=== PATIENT | female | born 1945 | race African-American/Black ===

== ENCOUNTER 2017-07-04 13:53 | Inpatient (IN) | payer MEDICARE, MEDICAID, OTHER ==
[2017-07-04] MEDS ORDERED: fentaNYL PF VIAL 100 MCG/2 ML VIAL IV (14:45)
[2017-07-04 14:52] LABS: ADD MAN DIFF? NO
[2017-07-04 15:00] LABS: BASO # 0.1 x10^3/uL (0.0-0.2); BASO % 1 % (0-3); EOS # 0.5 x10^3/uL (0.0-0.7); EOS % 5 % (0-3); HEMATOCRIT 35.4 % (36.0-47.0); HEMOGLOBIN 11.8 g/dL (12.0-15.5); LYMPH # 1.8 x10^3/uL (1.0-4.8); LYMPH % 16 % (24-48); MEAN CORPUSCULAR HEMOGLOBIN 31 pg (25-35); MEAN CORPUSCULAR HGB CONC 33 g/dL (31-37); MEAN CORPUSCULAR VOLUME 93 fL (79-100); MONO # 0.7 x10^3/uL (0.0-1.1); MONO % 7 % (0-9); NEUT # 7.8 x10^3uL (1.8-7.7); NEUT % 71 % (31-73); PLATELET COUNT 185 x10^3/uL (140-400); RED BLOOD COUNT 3.79 x10^6/uL (3.50-5.40); RED CELL DISTRIBUTION WIDTH 14.9 % (11.5-14.5); WHITE BLOOD COUNT 10.9 x10^3/uL (4.0-11.0)
[2017-07-04 15:09] LABS: INR 1.1 (0.8-1.1); PROTHROMBIN TIME PATIENT 13.2 SEC (11.7-14.0)
[2017-07-04 15:10] LABS: ANION GAP 14 (6-14); BLOOD UREA NITROGEN 64 mg/dL (7-20); CALCIUM 8.7 mg/dL (8.5-10.1); CARBON DIOXIDE 21 mmol/L (21-32); CHLORIDE 105 mmol/L (98-107); CREATININE 7.1 mg/dL (0.6-1.0); GFR 6.9; GLUCOSE 197 mg/dL (70-99); POTASSIUM 5.2 mmol/L (3.5-5.1); SODIUM 140 mmol/L (136-145)
[2017-07-04 15:15] LABS: ALBUMIN 3.4 g/dL (3.4-5.0); ALK PHOS 79 U/L (46-116); ALT (SGPT) 20 U/L (14-59); AST (SGOT) 26 U/L (15-37); DIRECT BILIRUBIN 0.1 mg/dL (0.0-0.2); LIPASE 299 U/L (73-393); MAGNESIUM 2.4 mg/dL (1.8-2.4); TOTAL BILIRUBIN 0.2 mg/dL (0.2-1.0); TOTAL PROTEIN 7.5 g/dL (6.4-8.2)
[2017-07-04 15:18] LABS: TROPONINI < 0.017 ng/mL (0.000-0.055)
[2017-07-04 15:23] LABS: CKMB MASS 0.9 ng/mL (0.0-3.6); CREATINE KINASE 87 U/L (26-192)
[2017-07-04 15:23] LABS: NT-PRO BNP 4967 pg/mL (0-124)
[2017-07-04 16:02] LABS: LACTIC ACID 1.2 mmol/L (0.4-2.0)
[2017-07-04 16:46] LABS: BILIRUBIN,URINE NEGATIVE (NEG); CLARITY,URINE CLEAR; COLOR,URINE YELLOW; GLUCOSE,URINE 100 mg/dL (NEG); NITRITE,URINE NEGATIVE (NEG); PROTEIN,URINE >=300 mg/dL (NEG-TRACE); UROBILINOGEN,URINE 0.2 mg/dL (0.2 mg/dL)
[2017-07-04 16:57] LABS: AMORPHOUS SEDIMENT,UR PRESENT /HPF; BACTERIA,URINE 0 /HPF (0-FEW); BARBITURATES NEG (NEG); BENZODIAZEPINES NEG (NEG); CANNABINOIDS NEG (NEG); COCAINE NEG (NEG); METHADONE NEG (NEG); OPIATES NEG (NEG); PHENCYCLIDINE NEG (NEG); RBC,URINE 0 /HPF (0-2); SQUAMOUS EPITHELIAL CELL,UR FEW /LPF
[2017-07-04 17:05] LABS: AMPHETAMINE/METHAMPHETAMINE NEG (NEG); ETHANOL, URINE NEG (NEG)
[2017-07-04] MEDS: IOHEXOL 300 MG/ML 100ML VIAL. IV (17:45)
[2017-07-04] MEDS ORDERED: ONDANSETRON PF 4 MG/2 ML VIAL. IV (17:45)
[2017-07-04] MEDS ORDERED: CONTRAST GIVEN MC (18:00)
[2017-07-04 20:19] LABS: POC GLUCOSE 78 mg/dL (70-99)
[2017-07-04] MEDS: MIRTAZAPINE 15 MG TABLET PO (20:57)
[2017-07-05 04:39] LABS: ADD MAN DIFF? NO
[2017-07-05 04:47] LABS: BASO # 0.1 x10^3/uL (0.0-0.2); BASO % 1 % (0-3); EOS # 0.7 x10^3/uL (0.0-0.7); EOS % 9 % (0-3); HEMATOCRIT 33.3 % (36.0-47.0); HEMOGLOBIN 10.8 g/dL (12.0-15.5); LYMPH # 1.9 x10^3/uL (1.0-4.8); LYMPH % 23 % (24-48); MEAN CORPUSCULAR HEMOGLOBIN 31 pg (25-35); MEAN CORPUSCULAR HGB CONC 33 g/dL (31-37); MEAN CORPUSCULAR VOLUME 94 fL (79-100); MONO # 0.7 x10^3/uL (0.0-1.1); MONO % 9 % (0-9); NEUT # 4.6 x10^3uL (1.8-7.7); NEUT % 58 % (31-73); PLATELET COUNT 158 x10^3/uL (140-400); RED BLOOD COUNT 3.55 x10^6/uL (3.50-5.40); RED CELL DISTRIBUTION WIDTH 14.8 % (11.5-14.5)
[2017-07-05 05:06] LABS: ANION GAP 11 (6-14); BLOOD UREA NITROGEN 67 mg/dL (7-20); CALCIUM 8.3 mg/dL (8.5-10.1); CARBON DIOXIDE 20 mmol/L (21-32); CHLORIDE 108 mmol/L (98-107); CREATININE 7.6 mg/dL (0.6-1.0); GFR 6.3; GLUCOSE 88 mg/dL (70-99); POTASSIUM 5.3 mmol/L (3.5-5.1); SODIUM 139 mmol/L (136-145)
[2017-07-05] MEDS: amLODIPine BESYLATE 5 MG TABLET PO ×2 (09:00→18:37)
[2017-07-05] MEDS: METOPROLOL SUCC 24HR ER 25 MG TAB.ER.24H. PO (09:00)
[2017-07-05] MEDS: ATORVASTATIN CALCIUM 10 MG TABLET. PO (09:00)
[2017-07-05] MEDS: LISINOPRIL 20 MG TABLET PO ×2 (09:00)
[2017-07-05 09:01] LABS: POC GLUCOSE 93 mg/dL (70-99)
[2017-07-05] MEDS ORDERED: ACETAMINOPHEN 500 MG TABLET PO (10:00)
[2017-07-05] MEDS ORDERED: ONDANSETRON PF 4 MG/2 ML VIAL. IV (10:00)
[2017-07-05] MEDS: PANTOPRAZOLE 40 MG TABLET.DR. PO (11:23)
[2017-07-05] MEDS: ASPIRIN ENTERIC COATED 81 MG TABLET.DR. PO (11:23)
[2017-07-05] MEDS: LINAGLIPTIN 5 MG TABLET PO (11:24)
[2017-07-05] MEDS ORDERED: IV NORMAL SALINE 1000ML BAG 1,000 ML IV ×2 (14:57)
[2017-07-05] MEDS ORDERED: diphenhydrAMINE 50 MG/ML VIAL IV ×2 (15:00)
[2017-07-05] MEDS ORDERED: DIALYSIS PATIENT. MC (15:00)
[2017-07-05 17:01] LABS: POC GLUCOSE 166 mg/dL (70-99)
[2017-07-05] MEDS: DARBEPOETIN ALFA 60 MCG/0.3 ML DISP.SYRIN. SQ (18:24)
== END 2017-07-05 19:32 | disposition home or self-care (01) | DRG 682 ==
LOC: ER 13:53 → 5 NORTH 17:31
PROC: 5A1D70Z Performance of Urinary Filtration, Intermittent, Less than 6 Hours Per Day (ICD-10-PCS; principal; 2017-07-05)
DX: I12.0 Hypertensive chronic kidney disease with stage 5 chronic kidney disease or end stage renal disease (principal); N18.6 End stage renal disease; E11.22 Type 2 diabetes mellitus with diabetic chronic kidney disease; E87.5 Hyperkalemia; M48.56XA Collapsed vertebra, not elsewhere classified, lumbar region, initial encounter for fracture; R47.01 Aphasia; K52.9 Noninfective gastroenteritis and colitis, unspecified; D63.1 Anemia in chronic kidney disease; E78.5 Hyperlipidemia, unspecified; F03.90 Unspecified dementia, unspecified severity, without behavioral disturbance, psychotic disturbance, mood disturbance, and anxiety; I25.10 Atherosclerotic heart disease of native coronary artery without angina pectoris; K76.89 Other specified diseases of liver; N20.0 Calculus of kidney; Z79.82 Long term (current) use of aspirin; Z79.84 Long term (current) use of oral hypoglycemic drugs; Z79.899 Other long term (current) drug therapy; Z82.49 Family history of ischemic heart disease and other diseases of the circulatory system; Z86.73 Personal history of transient ischemic attack (TIA), and cerebral infarction without residual deficits; Z91.15 Patient's noncompliance with renal dialysis; Z91.19 Patient's noncompliance with other medical treatment and regimen; Z95.1 Presence of aortocoronary bypass graft; Z99.2 Dependence on renal dialysis; E21.3 Hyperparathyroidism, unspecified; F32.9 Major depressive disorder, single episode, unspecified
CPT/HCPCS: 36415; 74177; 80048; 80076; 80307; 81001; 82553; 82962; 83605; 83690; 83735; 83880; 84484; 85025; 85610; 93005; 99285; 99285-25; J0881; Q9967

== ENCOUNTER 2017-08-10 12:32 | Emergency (ER) | payer MEDICARE, MEDICAID ==
[2017-08-10 13:21] LABS: ADD MAN DIFF? NO
[2017-08-10 13:23] LABS: BASO # 0.1 x10^3/uL (0.0-0.2); BASO % 1 % (0-3); EOS # 0.4 x10^3/uL (0.0-0.7); EOS % 7 % (0-3); HEMATOCRIT 39.6 % (36.0-47.0); HEMOGLOBIN 13.3 g/dL (12.0-15.5); LYMPH # 1.1 x10^3/uL (1.0-4.8); LYMPH % 18 % (24-48); MEAN CORPUSCULAR HEMOGLOBIN 32 pg (25-35); MEAN CORPUSCULAR HGB CONC 34 g/dL (31-37); MEAN CORPUSCULAR VOLUME 95 fL (79-100); MONO # 0.4 x10^3/uL (0.0-1.1); MONO % 7 % (0-9); NEUT # 4.1 x10^3uL (1.8-7.7); NEUT % 67 % (31-73); PLATELET COUNT 199 x10^3/uL (140-400); RED BLOOD COUNT 4.19 x10^6/uL (3.50-5.40); RED CELL DISTRIBUTION WIDTH 14.5 % (11.5-14.5); WHITE BLOOD COUNT 6.1 x10^3/uL (4.0-11.0)
[2017-08-10 13:31] LABS: ANION GAP 14 (6-14); BLOOD UREA NITROGEN 44 mg/dL (7-20); BUN/CREATININE RATIO 8 (6-20); CALCIUM 7.3 mg/dL (8.5-10.1); CARBON DIOXIDE 21 mmol/L (21-32); CHLORIDE 102 mmol/L (98-107); CREATININE 5.8 mg/dL (0.6-1.0); GFR 8.7; GLUCOSE 147 mg/dL (70-99); SODIUM 137 mmol/L (136-145)
[2017-08-10 13:37] LABS: ALBUMIN 3.7 g/dL (3.4-5.0); ALBUMIN/GLOBULIN RATIO 0.8 (1.0-1.7); ALK PHOS 97 U/L (46-116); ALT (SGPT) 34 U/L (14-59); AST (SGOT) 43 U/L (15-37); MAGNESIUM 2.1 mg/dL (1.8-2.4); POTASSIUM 5.1 mmol/L (3.5-5.1); TOTAL BILIRUBIN 0.5 mg/dL (0.2-1.0); TOTAL PROTEIN 8.1 g/dL (6.4-8.2)
[2017-08-10 13:40] LABS: TROPONINI < 0.017 ng/mL (0.000-0.055)
[2017-08-10 13:46] LABS: NT-PRO BNP 3197 pg/mL (0-124)
[2017-08-10 13:46] LABS: CKMB INDEX 0.5 % (0-4); CKMB MASS 1.8 ng/mL (0.0-3.6); CREATINE KINASE 393 U/L (26-192)
[2017-08-10] MEDS: ACETAMINOPHEN 325 MG TABLET. PO (14:33)
== END 2017-08-10 14:55 | disposition home or self-care (01) ==
LOC: ER 12:32
DX: M54.2 Cervicalgia (principal); I95.9 Hypotension, unspecified; I12.0 Hypertensive chronic kidney disease with stage 5 chronic kidney disease or end stage renal disease; E11.22 Type 2 diabetes mellitus with diabetic chronic kidney disease; N18.6 End stage renal disease; Z86.73 Personal history of transient ischemic attack (TIA), and cerebral infarction without residual deficits; Z99.2 Dependence on renal dialysis; Z95.5 Presence of coronary angioplasty implant and graft
CPT/HCPCS: 36415; 71045; 80053; 82553; 83735; 83880; 84484; 85025; 93005; 99285-25

== ENCOUNTER 2017-11-24 11:23 | Inpatient (IN) | payer MEDICARE, MEDICAID ==
[2017-11-24 12:01] LABS: ADD MAN DIFF? NO
[2017-11-24 12:03] LABS: BASO # 0.1 x10^3/uL (0.0-0.2); BASO % 0 % (0-3); EOS # 0.5 x10^3/uL (0.0-0.7); EOS % 4 % (0-3); HEMATOCRIT 35.2 % (36.0-47.0); HEMOGLOBIN 11.6 g/dL (12.0-15.5); LYMPH # 1.6 x10^3/uL (1.0-4.8); LYMPH % 11 % (24-48); MEAN CORPUSCULAR HEMOGLOBIN 31 pg (25-35); MEAN CORPUSCULAR HGB CONC 33 g/dL (31-37); MEAN CORPUSCULAR VOLUME 95 fL (79-100); MONO # 0.8 x10^3/uL (0.0-1.1); MONO % 6 % (0-9); NEUT # 10.9 x10^3uL (1.8-7.7); NEUT % 78 % (31-73); PLATELET COUNT 234 x10^3/uL (140-400); RED BLOOD COUNT 3.72 x10^6/uL (3.50-5.40); RED CELL DISTRIBUTION WIDTH 14.8 % (11.5-14.5); WHITE BLOOD COUNT 13.9 x10^3/uL (4.0-11.0)
[2017-11-24 12:33] LABS: ANION GAP 17 (6-14); BLOOD UREA NITROGEN 63 mg/dL (7-20); CARBON DIOXIDE 17 mmol/L (21-32); CHLORIDE 104 mmol/L (98-107); CREATININE 10.5 mg/dL (0.6-1.0); GFR 4.4; GLUCOSE 133 mg/dL (70-99); POTASSIUM 4.7 mmol/L (3.5-5.1); SODIUM 138 mmol/L (136-145)
[2017-11-24 12:39] LABS: ALBUMIN 2.9 g/dL (3.4-5.0); ALK PHOS 58 U/L (46-116); ALT (SGPT) 14 U/L (14-59); AST (SGOT) 17 U/L (15-37); DIRECT BILIRUBIN 0.1 mg/dL (0.0-0.2); LIPASE 188 U/L (73-393); MAGNESIUM 2.2 mg/dL (1.8-2.4); TOTAL BILIRUBIN 0.3 mg/dL (0.2-1.0); TOTAL PROTEIN 7.1 g/dL (6.4-8.2)
[2017-11-24 13:50] LABS: BILIRUBIN,URINE SMALL (NEG); CLARITY,URINE CLOUDY; COLOR,URINE YELLOW; GLUCOSE,URINE NEGATIVE (NEG); NITRITE,URINE NEGATIVE (NEG); PROTEIN,URINE 100 mg/dL (NEG-TRACE); UROBILINOGEN,URINE 0.2 mg/dL (0.2 mg/dL)
[2017-11-24 14:01] LABS: AMORPHOUS SEDIMENT,UR PRESENT /HPF; BACTERIA,URINE MOD /HPF (0-FEW); SQUAMOUS EPITHELIAL CELL,UR MANY /LPF; WBC,URINE 20-40 /HPF (0-4)
[2017-11-24] MEDS ORDERED: ONDANSETRON PF 4 MG/2 ML VIAL. IV ×2 (14:30)
[2017-11-24] MEDS ORDERED: PROCHLORPERAZINE 10 MG/2 ML VIAL. IV (14:30)
[2017-11-24] MEDS ORDERED: oxyCODONE IR 5 MG TABLET PO ×2 (14:30)
[2017-11-24] MEDS ORDERED: MORPHINE SULFATE 2 MG/ML DISP.SYRIN. IV (14:30)
[2017-11-24] MEDS ORDERED: PROCHLORPERAZINE 25 MG SUPP.RECT. PR (14:30)
[2017-11-24] MEDS ORDERED: MAGNESIUM HYDROXIDE 2,400 MG/30 ML ORAL.SUSP. PO (14:30)
[2017-11-24] MEDS ORDERED: MORPHINE SULFATE 4 MG/ML DISP.SYRIN. IV (14:30)
[2017-11-24] MEDS ORDERED: CALCIUM CARBONATE 500 MG TAB.CHEW PO (14:30)
[2017-11-24] MEDS ORDERED: ACETAMINOPHEN 325 MG TABLET. PO (14:30)
[2017-11-24] MEDS ORDERED: ZOLPIDEM 5 MG TABLET. PO (14:30)
[2017-11-24] MEDS ORDERED: BISACODYL 10 MG SUPP.RECT. PR (14:30)
[2017-11-24] MEDS ORDERED: DEXTROSE 50% 25 GM / 50ML DISP.SYRIN. IV (14:30)
[2017-11-24] MEDS ORDERED: amLODIPine BESYLATE 5 MG TABLET PO (15:00)
[2017-11-24] MEDS ORDERED: ASPIRIN ENTERIC COATED 81 MG TABLET.DR. PO (15:00)
[2017-11-24] MEDS ORDERED: LINAGLIPTIN 5 MG TABLET PO (15:00)
[2017-11-24] MEDS ORDERED: ATORVASTATIN CALCIUM 10 MG TABLET. PO (15:00)
[2017-11-24] MEDS ORDERED: METOPROLOL SUCC 24HR ER 25 MG TAB.ER.24H. PO (15:00)
[2017-11-24] MEDS ORDERED: LISINOPRIL 20 MG TABLET PO (15:00)
[2017-11-24 15:31] LABS: SEDIMENTATION RATE 95 (0-25)
[2017-11-24] MEDS: IV NORMAL SALINE 1000ML BAG 1,000 ML IV (16:00)
[2017-11-24] MEDS: CIPROFLOXACIN 400MG PREMIX 200 ML IV (16:13)
[2017-11-24 16:50] LABS: POC GLUCOSE 95 mg/dL (70-99)
[2017-11-24] MEDS: INSULIN LISPRO 300 UNITS/3 ML INSULN.PEN. SQ (17:00)
[2017-11-24 20:57] LABS: POC GLUCOSE 95 mg/dL (70-99)
[2017-11-24] MEDS: ATORVASTATIN CALCIUM 10 MG TABLET. PO (21:48)
[2017-11-24] MEDS: amLODIPine BESYLATE 5 MG TABLET PO (21:49)
[2017-11-24] MEDS: LINAGLIPTIN 5 MG TABLET PO (21:49)
[2017-11-24] MEDS: METOPROLOL SUCC 24HR ER 25 MG TAB.ER.24H. PO (21:50)
[2017-11-24] MEDS: MIRTAZAPINE 15 MG TABLET PO (21:50)
[2017-11-24] MEDS: ASPIRIN ENTERIC COATED 81 MG TABLET.DR. PO (21:50)
[2017-11-24] MEDS: DOCUSATE SODIUM 100 MG CAPSULE. PO (21:50)
[2017-11-24] MEDS: LISINOPRIL 20 MG TABLET PO (21:51)
[2017-11-25 04:36] LABS: ADD MAN DIFF? NO
[2017-11-25 05:13] LABS: BASO # 0.1 x10^3/uL (0.0-0.2); BASO % 1 % (0-3); EOS # 0.5 x10^3/uL (0.0-0.7); EOS % 5 % (0-3); HEMATOCRIT 28.8 % (36.0-47.0); HEMOGLOBIN 9.6 g/dL (12.0-15.5); LYMPH # 1.4 x10^3/uL (1.0-4.8); LYMPH % 13 % (24-48); MEAN CORPUSCULAR HEMOGLOBIN 32 pg (25-35); MEAN CORPUSCULAR HGB CONC 33 g/dL (31-37); MEAN CORPUSCULAR VOLUME 94 fL (79-100); MONO # 0.8 x10^3/uL (0.0-1.1); MONO % 8 % (0-9); NEUT # 7.7 x10^3uL (1.8-7.7); NEUT % 74 % (31-73); PLATELET COUNT 192 x10^3/uL (140-400); RED BLOOD COUNT 3.05 x10^6/uL (3.50-5.40); RED CELL DISTRIBUTION WIDTH 14.5 % (11.5-14.5); WHITE BLOOD COUNT 10.5 x10^3/uL (4.0-11.0)
[2017-11-25 05:25] LABS: ALBUMIN 2.8 g/dL (3.4-5.0); ALBUMIN/GLOBULIN RATIO 0.7 (1.0-1.7); ALK PHOS 69 U/L (46-116); ALT (SGPT) 13 U/L (14-59); ANION GAP 19 (6-14); AST (SGOT) 18 U/L (15-37); BLOOD UREA NITROGEN 72 mg/dL (7-20); BUN/CREATININE RATIO 6 (6-20); CALCIUM 7.7 mg/dL (8.5-10.1); CARBON DIOXIDE 14 mmol/L (21-32); CHLORIDE 101 mmol/L (98-107); CREATININE 11.7 mg/dL (0.6-1.0); GFR 3.8; GLUCOSE 101 mg/dL (70-99); POTASSIUM 5.2 mmol/L (3.5-5.1); SODIUM 134 mmol/L (136-145); TOTAL BILIRUBIN 0.3 mg/dL (0.2-1.0); TOTAL PROTEIN 6.8 g/dL (6.4-8.2)
[2017-11-25 07:38] LABS: POC GLUCOSE 107 mg/dL (70-99)
[2017-11-25] MEDS: INSULIN LISPRO 300 UNITS/3 ML INSULN.PEN. SQ ×3 (08:00→17:00)
[2017-11-25] MEDS: DOCUSATE SODIUM 100 MG CAPSULE. PO ×2 (09:00→20:08)
[2017-11-25] MEDS ORDERED: IV NORMAL SALINE 1000ML BAG 1,000 ML IV ×2 (10:04)
[2017-11-25] MEDS ORDERED: DIALYSIS PATIENT. MC (10:15)
[2017-11-25] MEDS: PANTOPRAZOLE 40 MG TABLET.DR. PO (12:00)
[2017-11-25 12:08] LABS: RETIC COUNT 1.5 % (0.5-2.5)
[2017-11-25 12:11] LABS: % SAT IRON 29 % (15-34); IRON,SERUM 40 ug/dL (50-170)
[2017-11-25 12:23] LABS: VITAMIN-B12 833 pg/mL (247-911)
[2017-11-25 12:23] LABS: FOLATE 10.46 ng/ml (3.2-20.0)
[2017-11-25] MEDS: CIPROFLOXACIN 400MG PREMIX 200 ML IV (16:00)
[2017-11-25 17:06] LABS: POC GLUCOSE 137 mg/dL (70-99)
[2017-11-25] MEDS: MIRTAZAPINE 15 MG TABLET PO (20:08)
[2017-11-25] MEDS: ASPIRIN ENTERIC COATED 81 MG TABLET.DR. PO (20:08)
[2017-11-25] MEDS: ATORVASTATIN CALCIUM 10 MG TABLET. PO (20:08)
[2017-11-25] MEDS: LINAGLIPTIN 5 MG TABLET PO (20:10)
[2017-11-25] MEDS: amLODIPine BESYLATE 5 MG TABLET PO (20:11)
[2017-11-25] MEDS: LISINOPRIL 20 MG TABLET PO (20:11)
[2017-11-25] MEDS: METOPROLOL SUCC 24HR ER 25 MG TAB.ER.24H. PO (20:13)
[2017-11-25 21:05] LABS: POC GLUCOSE 134 mg/dL (70-99)
[2017-11-26 07:29] LABS: POC GLUCOSE 117 mg/dL (70-99)
[2017-11-26] MEDS: INSULIN LISPRO 300 UNITS/3 ML INSULN.PEN. SQ ×3 (08:00→17:25)
[2017-11-26] MEDS ORDERED: IV NORMAL SALINE 1000ML BAG 1,000 ML IV ×2 (08:47)
[2017-11-26] MEDS: DOCUSATE SODIUM 100 MG CAPSULE. PO ×2 (08:55→21:11)
[2017-11-26] MEDS: PANTOPRAZOLE 40 MG TABLET.DR. PO (08:56)
[2017-11-26] MEDS ORDERED: DIALYSIS PATIENT. MC ×2 (09:00)
[2017-11-26 17:04] LABS: POC GLUCOSE 172 mg/dL (70-99)
[2017-11-26] MEDS: METOPROLOL SUCC 24HR ER 25 MG TAB.ER.24H. PO (17:19)
[2017-11-26] MEDS: CIPROFLOXACIN 400MG PREMIX 200 ML IV (17:19)
[2017-11-26] MEDS: LINAGLIPTIN 5 MG TABLET PO (18:19)
[2017-11-26] MEDS: ASPIRIN ENTERIC COATED 81 MG TABLET.DR. PO (18:19)
[2017-11-26] MEDS: ATORVASTATIN CALCIUM 10 MG TABLET. PO (18:19)
[2017-11-26] MEDS: MIRTAZAPINE 15 MG TABLET PO (18:19)
[2017-11-26] MEDS: LISINOPRIL 20 MG TABLET PO (18:20)
[2017-11-26] MEDS: amLODIPine BESYLATE 5 MG TABLET PO (18:20)
[2017-11-26 20:33] LABS: POC GLUCOSE 72 mg/dL (70-99)
[2017-11-26] MEDS: IV NORMAL SALINE 500ML BAG 500 ML IV (21:01)
[2017-11-27] MEDS: INSULIN LISPRO 300 UNITS/3 ML INSULN.PEN. SQ ×2 (08:00→12:00)
[2017-11-27 08:09] LABS: POC GLUCOSE 114 mg/dL (70-99)
[2017-11-27] MEDS: DOCUSATE SODIUM 100 MG CAPSULE. PO (09:00)
[2017-11-27] MEDS: PANTOPRAZOLE 40 MG TABLET.DR. PO (10:03)
[2017-11-27 11:52] LABS: POC GLUCOSE 140 mg/dL (70-99)
== END 2017-11-27 14:00 | disposition home or self-care (01) | DRG 871 ==
LOC: ER 11:23 → 6 SOUTH 14:20
PROC: 5A1D70Z Performance of Urinary Filtration, Intermittent, Less than 6 Hours Per Day (ICD-10-PCS; 2017-11-25)
PROC: 5A1D70Z Performance of Urinary Filtration, Intermittent, Less than 6 Hours Per Day (ICD-10-PCS; principal; 2017-11-26)
DX: A41.9 Sepsis, unspecified organism (principal); N18.6 End stage renal disease; I12.0 Hypertensive chronic kidney disease with stage 5 chronic kidney disease or end stage renal disease; A08.4 Viral intestinal infection, unspecified; E11.22 Type 2 diabetes mellitus with diabetic chronic kidney disease; I25.10 Atherosclerotic heart disease of native coronary artery without angina pectoris; F32.9 Major depressive disorder, single episode, unspecified; E78.5 Hyperlipidemia, unspecified; E21.3 Hyperparathyroidism, unspecified; N20.0 Calculus of kidney; K76.89 Other specified diseases of liver; I95.9 Hypotension, unspecified; K63.89 Other specified diseases of intestine; F03.90 Unspecified dementia, unspecified severity, without behavioral disturbance, psychotic disturbance, mood disturbance, and anxiety; N28.1 Cyst of kidney, acquired; D63.1 Anemia in chronic kidney disease; Z86.73 Personal history of transient ischemic attack (TIA), and cerebral infarction without residual deficits; Z95.1 Presence of aortocoronary bypass graft; Z82.49 Family history of ischemic heart disease and other diseases of the circulatory system; Z99.2 Dependence on renal dialysis
CPT/HCPCS: 36415; 74176; 76705; 80048; 80053; 80076; 81001; 82607; 82746; 82962; 83540; 83550; 83690; 83735; 85025; 85045; 85651; 96374; 97116-GP; 97162-GP; 97165-GO; 99285; 99285-25; J0744; J1815; J3490; J7030; J7040

== ENCOUNTER 2018-10-09 19:08 | Emergency (ER) | payer MEDICAID, MEDICARE ==
[~2018-10-09] VITALS: Ht 167.6 cm; Wt 55.3 kg
[~2018-10-09 19:08] MED LIST: AMLO5TAB4 PO; ASPI-612 PO; CALC667T4 PO; GLYB5TAB3 PO; LISI-334 PO; METF500T16 PO; METO-239 PO; METR500T PO; MIRT15TA PO; PRAV40TA2 PO; SITA50TA PO
[2018-10-09 20:32] VITALS: BP 165/75
[2018-10-09 22:13] LABS: BASO # 0.1 x10^3/uL (0.0-0.2); BASO % 1 % (0-3); EOS # 0.6 x10^3/uL (0.0-0.7); EOS % 11 % (0-3); HEMATOCRIT 37.2 % (36.0-47.0); LYMPH # 1.6 x10^3/uL (1.0-4.8); LYMPH % 30 % (24-48); MEAN CORPUSCULAR HEMOGLOBIN 30 pg (25-35); MEAN CORPUSCULAR HGB CONC 32 g/dL (31-37); MEAN CORPUSCULAR VOLUME 93 fL (79-100); MONO # 0.4 x10^3/uL (0.0-1.1); MONO % 8 % (0-9); NEUT # 2.7 x10^3uL (1.8-7.7); NEUT % 50 % (31-73); PLATELET COUNT 224 x10^3/uL (140-400); RED BLOOD COUNT 4.01 x10^6/uL (3.50-5.40); RED CELL DISTRIBUTION WIDTH 15.7 % (11.5-14.5); WHITE BLOOD COUNT 5.4 x10^3/uL (4.0-11.0)
[2018-10-09 22:33] LABS: CALCIUM 7.3 mg/dL (8.5-10.1); CREATININE 4.1 mg/dL (0.6-1.0); GFR 12.9; POTASSIUM 4.4 mmol/L (3.5-5.1)
[2018-10-09 22:38] LABS: ALBUMIN 3.9 g/dL (3.4-5.0); ALBUMIN/GLOBULIN RATIO 0.8 (1.0-1.7); TOTAL BILIRUBIN 0.3 mg/dL (0.2-1.0); TOTAL PROTEIN 8.7 g/dL (6.4-8.2)
--- NOTE | 2018-10-09 22:46 | PHYS DOC ---
Past Medical History Past Medical History: CVA, Diabetes-Type II, Hypertension, Renal Failure, Other Additional Past Medical Histor: APHASIA, ESRD Past Surgical History: Coronary Bypass Surgery, Other Additional Past Surgical Histo: dialysis shunt Alcohol Use: None Drug Use: None Adult General Chief Complaint Chief Complaint: ABNORMAL LABS HPI HPI 72-year-old female with a history of end-stage renal disease on dialysis presents secondary to low calcium. She had a routine blood drawn today which noted her see him to be 6.3. She was encouraged to come to the emergency dep artment for treatment of her low calcium. Patient states she feels well has not had any murmurs. She denies any palpitations. She states she is not had problems with her calcium in the past. She states she is under quite a bit of stress at home due to some family issues.[] Review of Systems Review of Systems Constitutional: Denies fever or chills [] Eyes: Denies change in visual acuity, redness, or eye pain [] HENT: Denies nasal congestion or sore throat [] Respiratory: Denies cough or shortness of breath [] Cardiovascular: No additional information not addressed in HPI [] GI: Denies abdominal pain, nausea, vomiting, bloody stools or diarrhea [] : Denies dysuria or hematuria [] Musculoskeletal: Denies back pain or joint pain [] Integument: Denies rash or skin lesions [] Neurologic: Complains of a stress headache[] Endocrine: Denies polyuria or polydipsia [] All other systems were reviewed and found to be within normal limits, except as documented in this note. Allergies Allergies Allergies Coded Allergies Type Severity Reaction Last Updated Verified No Known Drug Allergies 06/13/15 No Physical Exam Physical Exam Constitutional: Well developed, well nourished, no acute distress, non-toxic a ppearance. [] HENT: Normocephalic, atraumatic, bilateral external ears normal, oropharynx moist, no oral exudates, nose normal. [] Eyes: PERRLA, EOMI, conjunctiva normal, no discharge. [] Neck: Normal range of motion, no tenderness, supple, no stridor. [] Cardiovascular:Heart rate regular rhythm, no murmur [] Lungs & Thorax: Bilateral breath sounds clear to auscultation [] Abdomen: Bowel sounds normal, soft, no tenderness, no masses, no pulsatile masses. [] Skin: Warm, dry, no erythema, no rash. [] Back: No tenderness, no CVA tenderness. [] Extremities: No tenderness, no cyanosis, no clubbing, ROM intact, no edema. [] Neurologic: Alert and oriented X 3, normal motor function, normal sensory function, no focal deficits noted. [] Psychologic: Affect normal, judgement normal, mood normal. [] Current Patient Data Vital Signs Vital Signs Date Time Temp Pulse Resp B/P (MAP) Pulse Ox O2 Delivery O2 Flow Rate FiO2 10/09/18 20:32 98.2 69 18 165/75 (105) 99 Room Air 98.2 Lab Values Laboratory Tests Test 10/09/18 22:00 White Blood Count 5.4 x10^3/uL (4.0-11.0) Red Blood Count 4.01 x10^6/uL (3.50-5.40) Hemoglobin 12.0 g/dL (12.0-15.5) Hematocrit 37.2 % (36.0-47.0) Mean Corpuscular Volume 93 fL (79-100) Mean Corpuscular Hemoglobin 30 pg (25-35) Mean Corpuscular Hemoglobin Concent 32 g/dL (31-37) Red Cell Distribution Width 15.7 % (11.5-14.5) H Platelet Count 224 x10^3/uL (140-400) Neutrophils (%) (Auto) 50 % (31-73) Lymphocytes (%) (Auto) 30 % (24-48) Monocytes (%) (Auto) 8 % (0-9) Eosinophils (%) (Auto) 11 % (0-3) H Basophils (%) (Auto) 1 % (0-3) Neutrophils # (Auto) 2.7 x10^3uL (1.8-7.7) Lymphocytes # (Auto) 1.6 x10^3/uL (1.0-4.8) Monocytes # (Auto) 0.4 x10^3/uL (0.0-1.1) Eosinophils # (Auto) 0.6 x10^3/uL (0.0-0.7) Basophils # (Auto) 0.1 x10^3/uL (0.0-0.2) Sodium Level 139 mmol/L (136-145) Potassium Level 4.4 mmol/L (3.5-5.1) Chloride Level 104 mmol/L (98-107) Carbon Dioxide Level 21 mmol/L (21-32) Anion Gap 14 (6-14) Blood Urea Nitrogen 26 mg/dL (7-20) H Creatinine 4.1 mg/dL (0.6-1.0) H Estimated GFR (Cockcroft-Gault) 12.9 BUN/Creatinine Ratio 6 (6-20) Glucose Level 100 mg/dL (70-99) H Calcium Level 7.3 mg/dL (8.5-10.1) L Magnesium Level 2.0 mg/dL (1.8-2.4) Total Bilirubin 0.3 mg/dL (0.2-1.0) Aspartate Amino Transferase (AST) 32 U/L (15-37) Alanine Aminotransferase (ALT) 37 U/L (14-59) Alkaline Phosphatase 128 U/L (46-116) H Total Protein 8.7 g/dL (6.4-8.2) H Albumin 3.9 g/dL (3.4-5.0) Albumin/Globulin Ratio 0.8 (1.0-1.7) L Laboratory Tests 10/09/18 22:00 Laboratory Tests 10/09/18 22:00 EKG EKG [] Radiology/Procedures Radiology/Procedures [] Course & Med Decision Making Course & Med Decision Making Pertinent Labs and Imaging studies reviewed. (See chart for details) [ED course: Evaluation reveals a 72-year-old female with low calcium. She was given thousand milligrams of calcium gluconate over about 10-20 minutes without difficulty. I've encouraged patient to follow back with her primary care physician early next week to recheck her calcium level.] Dragon Disclaimer Dragon Disclaimer This electronic medical record was generated, in whole or in part, using a voice recognition dictation system. Departure Departure Impression: Primary Impression: Hypocalcemia Disposition: 01 HOME, SELF-CARE Condition: IMPROVED Referrals: MARIO ABEL DO (PCP) Patient Instructions: Hypocalcemia, Adult Additional Instructions: Return to the emergency department with any new or concerning symptoms KURT HALL DO Oct 09, 2018 22:46
[2018-10-09] MEDS ORDERED: CALCIUM GLUCONATE 1,000 MG in IV DEXTROSE 5% 100ML 100 ML IV ONE (23:00)
--- NOTE | 2018-10-14 10:52 | NUR ---
Late entry made to Medical Record. IV Stop time transcribed from eMAR to IV spreadsheet
== END 2018-10-09 23:45 | disposition home or self-care (01) ==
LOC: ER 19:08
DX: E83.51 Hypocalcemia (principal); I12.0 Hypertensive chronic kidney disease with stage 5 chronic kidney disease or end stage renal disease; E11.22 Type 2 diabetes mellitus with diabetic chronic kidney disease; N18.6 End stage renal disease; Z99.2 Dependence on renal dialysis; Z95.1 Presence of aortocoronary bypass graft; Z86.73 Personal history of transient ischemic attack (TIA), and cerebral infarction without residual deficits
CPT/HCPCS: 36415; 80053; 83735; 85025; 96365; 99284; J0610

== ENCOUNTER 2019-01-15 12:40 | Emergency (ER) | payer MEDICARE, OTHER ==
[~2019-01-15] VITALS: Ht 160 cm; Wt 60.4 kg
[2019-01-15 14:50] VITALS: BP 211/98
[2019-01-15 15:41] LABS: CREATININE ISTAT 9.2 mg/dL (0.5-1.4); HEMOGLOBIN ISTAT 9.2 g/dL (12-15); ION CA ISTAT 1.25 mmol/L (1.13-1.32); POTASSIUM ISTAT 6.3 mmol/L (3.5-5.0)
--- NOTE | 2019-01-15 17:57 | PHYS DOC ---
Past Medical History Past Medical History: CVA, Diabetes-Type II, Hypertension, Renal Failure, Other Additional Past Medical Histor: APHASIA, ESRD, dialysis (KARSTEN JUÁREZ APRN) Past Surgical History: Coronary Bypass Surgery, Other Additional Past Surgical Histo: dialysis shunt (KARSTEN JUÁREZ APRN) Alcohol Use: None Drug Use: None (KARSTEN JUÁREZ APRN) Adult General Chief Complaint Chief Complaint: DIALYSIS PROBLEM HPI HPI Patient is a 73 year old female with history of diabetes type 2, hypertension, CVA, end-stage renal disease on dialysis Saturday, , Saturday who presents today from a dialysis center, patient states they tried to access his dialysis fistula with a needle, the needle fell off the nurses hand and blood started bleeding all over the place. Patient states the bleeding was stopped in dialysis center was concerned she could've lost more blood than normal so she was sent to the ED. Patient denies any symptoms. (KARSTEN JUÁREZ APRN) Review of Systems Review of Systems Constitutional: Denies fever or chills [] Eyes: Denies change in visual acuity, redness, or eye pain [] HENT: Denies nasal congestion or sore throat [] Respiratory: Denies cough or shortness of breath [] Cardiovascular: No additional information not addressed in HPI [] GI: Denies abdominal pain, nausea, vomiting, bloody stools or diarrhea [] : Denies dysuria or hematuria [] Musculoskeletal: Denies back pain or joint pain [] Integument: Reports dialysis fistula bleeding. Denies rash or skin lesions [] Neurologic: Denies headache, focal weakness or sensory changes [] All other systems were reviewed and found to be within normal limits, except as documented in this note. (KARSTEN JUÁREZ APRN) Allergies Allergies Allergies Coded Allergies Type Severity Reaction Last Updated Verified No Known Drug Allergies 06/13/15 No (ELSA JUNE MD) Physical Exam Physical Exam Constitutional: Well developed, well nourished, no acute distress, non-toxic appearance. [] HENT: Normocephalic, atraumatic, bilateral external ears normal, oropharynx moist, no oral exudates, nose normal. [] Eyes: PERRLA, EOMI, conjunctiva normal, no discharge. [] Neck: Normal range of motion, no tenderness, supple, no stridor. [] Cardiovascular:Heart rate regular rhythm, no murmur [] Lungs & Thorax: Bilateral breath sounds clear to auscultation [] Abdomen: Bowel sounds normal, soft, no tenderness, no masses, no pulsatile reji s. [] Skin: Warm, dry, no erythema, no rash. Right upper extremity with the dialysis fistula, no bleeding noted, positive bruit and thrill. Dressing on the dialysis site clean and dry Back: No tenderness, no CVA tenderness. [] Extremities: No tenderness, no cyanosis, no clubbing, ROM intact, no edema. [] Neurologic: Alert and oriented X 3, normal motor function, normal sensory function, no focal deficits noted. [] Psychologic: Affect normal, judgement normal, mood normal. [] (KARSTEN JUÁREZ APRN) Current Patient Data Vital Signs Vital Signs Date Time Temp Pulse Resp B/P (MAP) Pulse Ox O2 Delivery O2 Flow Rate FiO2 01/15/19 14:50 99.0 78 16 211/98 (135) 97 Room Air 99.0 (ELSA JUNE MD) Lab Values Laboratory Tests Test 01/15/19 15:06 POC Hemoglobin 9.2 g/dL (12-15) L POC Hematocrit 27 % (36-40) L POC Sodium 143 mmol/L (135-145) POC Potassium 6.3 mmol/L (3.5-5.0) H POC Chloride 116 mmol/L (98-110) H POC Total CO2 18 mmol/L (23-32) L Anion Gap 17 mmol/L (6-14) H POC Blood Urea Nitrogen 84 mg/dL (8-26) H POC Creatinine 9.2 mg/dL (0.5-1.4) H Glucose Level 164 mg/dL (70-99) H POC Ionized Calcium (Terrell) 1.25 mmol/L (1.13-1.32) Laboratory Tests 01/15/19 15:06 (ELSA JUNE MD) EKG EKG [] (KARSTEN JUÁREZ APRN) Radiology/Procedures Radiology/Procedures [] (KARSTEN JUÁREZ APRN) Course & Med Decision Making Course & Med Decision Making Pertinent Labs and Imaging studies reviewed. (See chart for details) This is a 73-year-old female patient who presents to the ED today from her dialysis center to be evaluated after bleeding from the dialysis fistula was being accessed started bleeding, she missed dialysis was brought to the ED. Chem 8 potassium 6.3, Hgb 9.2, HCT 27 Patient eloped (KARSTEN JUÁREZ APRN) Course & Med Decision Making Staff Physician Addendum: I was working in the ER during the course of this patient's visit. I was available for consultation as needed, but I was not directly involved in the care of this patient. (ELSA JUNE MD) Dragon Disclaimer Dragon Disclaimer This electronic medical record was generated, in whole or in part, using a voice recognition dictation system. (KARSTEN JUÁREZ APRN) Departure Departure Impression: Primary Impression: ESRD (end stage renal disease) on dialysis Disposition: 07 AGAINST MEDICAL ADVICE Condition: STABLE Referrals: MARIO ABEL DO (PCP) KARSTEN JUÁREZ APRN Jan 15, 2019 17:57 ELSA JUNE MD Jan 16, 2019 04:13
== END 2019-01-15 16:10 | disposition left against medical advice (07) ==
LOC: ER 12:40
DX: T80.89XA Other complications following infusion, transfusion and therapeutic injection, initial encounter (principal); Z86.73 Personal history of transient ischemic attack (TIA), and cerebral infarction without residual deficits; Z95.1 Presence of aortocoronary bypass graft; E11.22 Type 2 diabetes mellitus with diabetic chronic kidney disease; I12.0 Hypertensive chronic kidney disease with stage 5 chronic kidney disease or end stage renal disease; N18.6 End stage renal disease; Z99.2 Dependence on renal dialysis; Y82.8 Other medical devices associated with adverse incidents; Y92.89 Other specified places as the place of occurrence of the external cause
CPT/HCPCS: 80047; 85014; 85018; 99283

== ENCOUNTER 2019-08-04 13:28 | Emergency (ER) | payer MEDICARE, OTHER ==
[~2019-08-04] VITALS: Ht 167.6 cm; Wt 65.0 kg
[2019-08-04 13:30] VITALS: BP 154/74
--- NOTE | 2019-08-04 14:32 | PHYS DOC ---
Past Medical History Past Medical History: CVA, Diabetes-Type II, Hypertension, Renal Failure, Other Additional Past Medical Histor: APHASIA, ESRD, dialysis (GRADY ADMON APRN) Past Surgical History: Coronary Bypass Surgery, Other Additional Past Surgical Histo: dialysis shunt RIGHT ARM (GRADY DAMON APRN) Smoking Status: Current Every Day Smoker Alcohol Use: None Drug Use: None (GRADY DAMON APRN) General Adult EDM: Chief Complaint: DIALYSIS PROBLEM HPI: HPI: Patient is a 73 year old AA female who presents to the emergency department via EMS sent from the dialysis center. EMS states that the dialysis center was unable to get the bleeding to stop after the accessing her right arm fistula today. The patient received her full dialysis treatment. Patient denies any complaints at this time. She denies any shortness of breath, chest pain, palpitations, nausea, numbness, tingling, or weakness. She currently denies any pain. (GRADY DAMON APRN) Review of Systems: Review of Systems: Complete ROS is negative unless otherwise noted in HPI. (GRADY DAMON APRN) Heart Score: Risk Factors: Risk Factors: DM, Current or recent (<one month) smoker, HTN, HLP, family history of CAD, obesity. Risk Scores: Score 0 - 3: 2.5% MACE over next 6 weeks - Discharge Home Score 4 - 6: 20.3% MACE over next 6 weeks - Admit for Clinical Observation Score 7 - 10: 72.7% MACE over next 6 weeks - Early Invasive Strategies (GRADY DAMON APRN) Allergies: Allergies: Allergies Coded Allergies Type Severity Reaction Last Updated Verified No Known Drug Allergies 06/13/15 No (GRADY DAMON APRN) Physical Exam: PE: Constitutional: Well developed, well nourished, no acute distress, non-toxic appearance. [] HENT: Normocephalic, atraumatic, bilateral external ears normal, nose normal. [] Eyes: PERRLA, EOMI, conjunctiva normal, no discharge. [] Neck: Normal range of motion, no stridor. [] Cardiovascular:Heart rate regular rhythm Lungs & Thorax: Respirations even and unlabored, no retractions, no respiratory distress Skin: Warm, dry, no erythema, no rash; medial access site of right arm AV fistul a noted to have continuous flow of blood from access site, bleeding controlled with pressure dressing placed by myself. [] Extremities: Right arm positive bruit and thrill of right AV fistula, 2+ radial pulses, cap refill less than 2 seconds, PMS intact, no edema. [] Neurologic: Alert and oriented X 3, no focal deficits noted. [] Psychologic: Affect normal, judgement normal, mood normal. [] (GRADY DAMON APRN) Current Patient Data: Vital Signs: Vital Signs Date Time Temp Pulse Resp B/P (MAP) Pulse Ox O2 Delivery O2 Flow Rate FiO2 08/04/19 13:30 98.1 67 16 154/74 (100) 100 Room Air 98.1 (GRADY DAMON APRN) EKG: EKG: [] (GRADY DAOMN APRN) Radiology/Procedures: Radiology/Procedures: [] (GRADY DAMON APRN) Course & Med Decision Making: Course & Med Decision Making Pertinent Labs and Imaging studies reviewed. (See chart for details) Patient is a 73-year-old AA female sent to the emergency department from the dialysis center via EMS for uncontrolled bleeding from AV fistula after dialysis today. Patient denied any complaints. Her vital signs are stable. I used 4x4's and Coban were used to to apply a pressure bandage. The pressure bandage was left in place for approximately 20 minutes. The pressure bandage was removed by myself and there was no more bleeding at the fistula site. Radial pulse remains 2+, PMS intact, positive bruit and thrill after pressure dressing removed. A Band-Aid was placed over the insertion site. The patient was able to move her arm without return of bleeding. Patient was given 4x4's and left over Coban and encouraged to apply pressure dressing and come back to the emergency department if bleeding occurs again. Follow-up with her primary care doctor as needed, continue dialysis per routine schedule. Patient verbalized an understanding of home care, medications, follow-up, and return to ED instructions and was in agreement with the plan of care. [] (GRADY DAMON APRN) Hailey Disclaimer: Dragon Disclaimer: This electronic medical record was generated, in whole or in part, using a voice recognition dictation system. (GRADY DAMON FERMENTING CELLAR DROPPER) Departure Departure Impression: Primary Impression: Hemorrhage of arteriovenous fistula Qualified Codes: T82.838A - Hemorrhage due to vascular prosthetic devices, implants and grafts, initial encounter Disposition: 01 HOME, SELF-CARE Condition: STABLE Referrals: UNKNOWN PCP NAME (PCP) Patient Instructions: AV Fistula, Care After Additional Instructions: Apply pressure dressing and come back to the emergency department if bleeding occurs again. Follow-up with your primary care doctor as needed, continue dialysis per routine schedule. GRADY DAMON APRN Aug 04, 2019 14:32 KURT HALL DO Aug 07, 2019 07:18
== END 2019-08-04 14:50 | disposition home or self-care (01) ==
LOC: ER 13:28
DX: T82.838A Hemorrhage due to vascular prosthetic devices, implants and grafts, initial encounter (principal); E11.22 Type 2 diabetes mellitus with diabetic chronic kidney disease; I10 Essential (primary) hypertension; I12.0 Hypertensive chronic kidney disease with stage 5 chronic kidney disease or end stage renal disease; N18.6 End stage renal disease; F17.200 Nicotine dependence, unspecified, uncomplicated; I97.821 Postprocedural cerebrovascular infarction following other surgery; Z98.890 Other specified postprocedural states; Z86.73 Personal history of transient ischemic attack (TIA), and cerebral infarction without residual deficits
CPT/HCPCS: 99283

== ENCOUNTER 2020-02-01 13:50 | Emergency (ER) | payer MEDICARE, OTHER ==
[~2020-02-01] VITALS: Ht 170.2 cm; Wt 72.0 kg
[~2020-02-01 13:50] MED LIST changes: -ASPI-612 PO; +ASPI-886 PO
[2020-02-01 14:11] VITALS: BP 152/77
--- NOTE | 2020-02-01 14:26 | PHYS DOC ---
Past Medical History Past Medical History: CVA, Diabetes-Type II, Hypertension, Renal Failure, Other Additional Past Medical Histor: APHASIA, ESRD, dialysis Past Surgical History: Coronary Bypass Surgery, Other Additional Past Surgical Histo: dialysis shunt RIGHT ARM Smoking Status: Current Every Day Smoker Alcohol Use: None Drug Use: None General Adult EDM: Chief Complaint: UPPER EXTREMITY SWELLING HPI: HPI: Patient is a 74 year old female who presents with right upper extremity pain. Patient is a dialysis patient received a full dialysis on Saturday but her shunt in her right arm began having pain after that. Pain is worse with movement and when the arm is in the dependent position. Pain is moderate at rest and more severe with movement and palpation. Patient denies any fever, chills, chest pain. Patient denies any focal weakness or numbness. Patient denies any trauma. Review of Systems: Review of Systems: Constitutional: Denies fever or chills. [] Eyes: Denies change in visual acuity. [] HENT: Denies nasal congestion or sore throat. [] Respiratory: Denies cough or shortness of breath. [] Cardiovascular: Denies chest pain or edema. [] GI: Denies abdominal pain, nausea, vomiting, bloody stools or diarrhea. [] : Denies dysuria. [] Musculoskeletal: Denies back pain but has right arm pain Integument: Denies rash. [] Neurologic: Denies headache, focal weakness or sensory changes. [] Endocrine: Denies polyuria or polydipsia. [] Lymphatic: Denies swollen glands. [] Psychiatric: Denies depression or anxiety. [] Heart Score: Risk Factors: Risk Factors: DM, Current or recent (<one month) smoker, HTN, HLP, family history of CAD, obesity. Risk Scores: Score 0 - 3: 2.5% MACE over next 6 weeks - Discharge Home Score 4 - 6: 20.3% MACE over next 6 weeks - Admit for Clinical Observation Score 7 - 10: 72.7% MACE over next 6 weeks - Early Invasive Strategies Allergies: Allergies: Allergies Coded Allergies Type Severity Reaction Last Updated Verified No Known Drug Allergies 06/13/15 No Physical Exam: PE: Constitutional: Well developed, well nourished, no acute distress, non-toxic appearance. [] HENT: Normocephalic, atraumatic, bilateral external ears normal, no trismus nose normal. [] Eyes: PERRLA, EOMI, conjunctiva normal, no discharge. [] Neck: Normal range of motion, no tenderness, supple, no stridor. [] Cardiovascular:Heart rate regular rhythm, peripheral pulses are intact, cap refill is brisk Lungs & Thorax: Bilateral breath sounds clear, no respiratory distress Abdomen: soft, no tenderness, no masses, no pulsatile masses. [] Skin: Warm, dry, no erythema, no rash. [] Back: No tenderness, no CVA tenderness. [] Extremities: Dialysis fistula in right upper extremity with out signs of erythema warmth or drainage. Good thrill is present peripheral pulses are intact, neurovascular intact distally Neurologic: Alert and oriented X 3, normal motor function, normal sensory function, no focal deficits noted. [] Psychologic: Affect normal, judgement normal, mood normal. [] Current Patient Data: Vital Signs: Vital Signs Date Time Temp Pulse Resp B/P (MAP) Pulse Ox O2 Delivery O2 Flow Rate FiO2 02/01/20 14:11 98.3 79 16 152/77 (102) 97 Room Air 98.3 EKG: EKG: [] Radiology/Procedures: Radiology/Procedures: [][facility] [address] [place], [place] [id number] IMAGING REPORT Signed PATIENT: KARL BURNETT ACCOUNT: [id number] : 1945 LOCATION: ER AGE: 74 SEX: F EXAM STATUS: REG ER ORD. PHYSICIAN: AARON BECKER MD REASON: ARM PAIN, EVAL DIALYSIS SHUNT PROCEDURE: VENOUS UPPER EXTREMITY RIGHT EXAM: Right upper extremity venous Doppler. HISTORY: Right upper extremity pain/swelling. COMPARISON: None. FINDINGS: Grayscale and Doppler analysis of the right upper extremity deep venous system was performed with graded compression and augmentation. The internal jugular, subclavian, axillary, brachial, basilic, cephalic, radial and ulnar veins were assessed. There is no evidence of deep venous thrombosis. A right upper arm dialysis fistula is patent without evidence of stenosis. No hematoma is identified. IMPRESSION: 1. No evidence of deep venous thrombosis. Electronically signed by: Iesha Barrett MD (02/01/2020 4:22 PM) [facility] DICTATED and SIGNED BY: BETTYE BARRETT MD DATE: 02/01/20 3532 Course & Med Decision Making: Course & Med Decision Making Pertinent Labs and Imaging studies reviewed. (See chart for details) [] 74-year-old female presents with pain in her dialysis fistula site. Patient has no evidence of infection on exam. There is no warmth, erythema or drainage. The ultrasound shows no evidence of stenosis or DVT. Discussed with patient his results and that she is okay to follow-up with dialysis tomorrow at 10:00. Return precautions given. Compartment is soft Dragon Disclaimer: Dragon Disclaimer: This electronic medical record was generated, in whole or in part, using a voice recognition dictation system. Departure Departure Impression: Primary Impression: Right arm pain Additional Impression: End stage renal disease Disposition: DC HOME SELF CARE/HOMELESS Condition: STABLE Referrals: UNKNOWN PCP NAME (PCP) Dialysis tomorrow Patient Instructions: Dialysis Additional Instructions: EMERGENCY DEPARTMENT GENERAL DISCHARGE INSTRUCTIONS THANK YOU for coming to [facility] Emergency Department (ED) today and trusting us with your care. We trust that you had a positive experience in our Emergency Department. If you wish to speak to the department Management you can contact the forming department supervisor at . YOUR FOLLOW UP INSTRUCTIONS ARE FOLLOWS: Do you have a private doctor? If you do not have a private doctor, please ask for a resource list of physicians or clinics that may be able to assist you with follow up care. The Emergency Physician has interpreted your x-rays. The X-ray specialist will also review them. If there is a change in the findings you will be notified in 48 hours when at all possible. A lab test or lab culture may have been done, your results will be reviewed and you will be notified if you need a change in treatment. ADDITIONAL INSTRUCTIONS AND INFORMATION Your care today has been supervised by a physician who is specially trained in emergency care. Many problems require more than one evaluation for a complete diagnosis and treatment. We recommend that you schedule your follow up appointment as recommended to ensure complete treatment of your illness or injury. If you are unable to obtain follow up care and continue to have a problem, or if your condition worsens we recommend that you return to the ED. We are not able to safely determine your condition over the phone nor are we able to give sound medical advice over the phone. For these safety reasons, if you call for medical advice we will ask you to come to the ED for further evaluation If you have any questions regarding these discharge instructions please call the ED at . SAFETY INFORMATION In the interest of safety, wellness, and injury prevention; we encourage you to wear your seatbelt, if you smoke; quit smoking, and we encourage your family to use protective helmet for bicycling and other sporting events that present an increased risk for head injury. IF YOUR SYMPTOMS WORSEN OR NEW SYMPTOMS DEVELOP, OR YOU HAVE CONCERNS ABOUT YOUR CONDITION; OR IF YOUR CONDITION WORSENS WHILE YOU ARE WAITING FOR YOUR FOLLOW UP APPOINTMENT; EITHER CONTACT YOUR PRIMARY CARE DOCTOR, THE PHYSICIAN WHOSE NAME AND NUMBER YOU WERE GIVEN, OR RETURN TO THE ED IMMEDIATELY. AARON BECKER MD Feb 01, 2020 14:26
--- NOTE | 2020-02-01 16:25 | RAD ---
EXAM: Right upper extremity venous Doppler. HISTORY: Right upper extremity pain/swelling. COMPARISON: None. FINDINGS: Grayscale and Doppler analysis of the right upper extremity deep venous system was performed with graded compression and augmentation. The internal jugular, subclavian, axillary, brachial, basilic, cephalic, radial and ulnar veins were assessed. There is no evidence of deep venous thrombosis. A right upper arm dialysis fistula is patent without evidence of stenosis. No hematoma is identified. IMPRESSION: 1. No evidence of deep venous thrombosis. Electronically signed by: Iesha Martin MD (02/01/2020 4:22 PM) [facility]
== END 2020-02-01 17:17 | disposition home or self-care (01) ==
LOC: ER 13:50
DX: M79.601 Pain in right arm (principal); E11.22 Type 2 diabetes mellitus with diabetic chronic kidney disease; I13.11 Hypertensive heart and chronic kidney disease without heart failure, with stage 5 chronic kidney disease, or end stage renal disease; N18.6 End stage renal disease; F17.200 Nicotine dependence, unspecified, uncomplicated; Z99.2 Dependence on renal dialysis; Z95.1 Presence of aortocoronary bypass graft; Z86.73 Personal history of transient ischemic attack (TIA), and cerebral infarction without residual deficits
CPT/HCPCS: 93971; 99284